=== PATIENT | male | born 1985 | race African-American/Black ===

== ENCOUNTER 2024-06-25 20:31 | Inpatient (IN) | payer MEDICAID, OTHER ==
--- NOTE | 2024-06-26 04:34 | ED ---
Psych HPI - General Chief Complaint: Psychiatric Symptoms Stated Complaint: Petition Time Seen by Provider: 06/26/24 00:30 Source: patient, police, RN notes reviewed Mode of arrival: ambulatory Limitations: no limitations - History of Present Illness Initial Comments: This is a 38-year-old male who presents to the emergency department for psychiatric evaluation. Patient was petitioned by police for suicidal ideations. Patient states that he found out that this girlfriend was cheating on him with his landlord. He went to confront his landlord, who then got scared and told police that he was making suicidal statements. Patient currently denies this and states that he is frustrated with the situation and does not want to be here. - Related Data Allergies Allergy/AdvReac Type Severity Reaction Status Date / Time No Known Allergies Allergy Verified 06/25/24 20:51 Review of Systems ROS Statement: Those systems with pertinent positive or pertinent negative responses have been documented in the HPI. ROS Other: All systems not noted in ROS Statement are negative. Past Medical History Past Medical History: No Reported History History of Any Multi-Drug Resistant Organisms: None Reported Past Surgical History: Orthopedic Surgery Past Psychological History: No Psychological Hx Reported Smoking Status: Never smoker Past Alcohol Use History: None Reported Past Drug Use History: Marijuana General Exam Limitations: no limitations General appearance: alert, in no apparent distress Head exam: Present: atraumatic, normocephalic, normal inspection Respiratory exam: Present: normal lung sounds bilaterally. Absent: respiratory distress, wheezes, rales, rhonchi, stridor Cardiovascular Exam: Present: regular rate, normal rhythm, normal heart sounds. Absent: systolic murmur, diastolic murmur, rubs, gallop, clicks Neurological exam: Present: alert, oriented X3, CN II-XII intact Psychiatric exam: Present: agitated. Absent: homicidal ideation, suicidal ideation Skin exam: Present: warm, dry, intact, normal color. Absent: rash Course Vital Signs 06/25/24 20:49 Temperature 99.0 F Pulse Rate 80 Respiratory 18 Rate Blood Pressure 156/76 O2 Sat by Pulse 99 Oximetry Medical Decision Making - Medical Decision Making This is a 38 year old male who presents to the emergency department for mental health evaluation. Was pt. sent in by a medical professional or institution? @ -No Did you speak to anyone other than the patient for history? @ -No Did you review nursing and triage notes? @ -Yes, and I agree, it is accurate with regards to the patient's symptoms. Were old charts reviewed? @ -No Differential Diagnosis? @ -Differential Mental Health Depression, anxiety, bipolar, psychosis, schizophrenia, borderline personality, situational depression, adjustment disorder, behavioral disorder, brain tumor, malingering, substance abuse, encephalopathy, medication reaction, dementia, hypothyroidism, degenerative neurologic disorder, lupus.... This is not meant to be all-inclusive list EKG interpreted by me (3pts min.)? @ -Not obtained X-rays interpreted by me (1pt min.)? @ -Not obtained CT interpreted by me (1pt min.)? @ -Not obtained U/S interpreted by me (1pt. min.)? @ -Not obtained What testing was considered but not performed? (CT, X-rays, U/S, labs)? Why? @ -None What meds were considered but not given? Why? @ -None Did you discuss the management of the patient with other professionals? @ -No Did you reconcile home meds? @ -No Was smoking cessation discussed for >3mins.? @ -No Was critical care preformed (if so, how long)? @ -No Were there social determinants of health that impacted care today? How? (Homelessness, low income, unemployed, alcoholism, drug addiction, transportation, low edu. Level, literacy, decrease access to med. care, intermediate, rehab)? @ -No Was there de-escalation of care discussed even if they declined? (Discuss DNR or withdrawal of care, Hospice)? @ -No What co-morbidities impacted this encounter? (DM, HTN, Smoking, COPD, CAD, Cancer, CVA, Hep., AIDS, mental health diagnosis, sleep apnea, morbid obesity)? @ -Major depressive disorder, schizoaffective disorder Was patient admitted / discharged? @ -Admitted. BAT was 0.00 and patient was cleared for EPS evaluation. EPS evaluated the patient and advised that he meets criteria for inpatient psychiatric hospitalization. He has a history of schizoaffective disorder and major depressive disorder with psychotic features and has not been taking his medications. He has also been making threats to people and has access to weapons. He will be admitted to [facility] on an involuntary basis due to no ncompliance with treatment as well as making threats towards others and poor impulse control. Clinical CERT filled out by ED attending Dr. Montano. Undiagnosed new problem with uncertain prognosis? @ -None Drug Therapy requiring intensive monitoring for toxicity (Heparin, Nitro, Insulin, Cardizem)? @ -None Were any procedures done? @ -None Diagnosis/symptom? @ -Medication noncompliance, threatening to self and others Acute, or Chronic, or Acute on Chronic? @ -Acute Uncomplicated (without systemic symptoms) or Complicated (systemic symptoms)? @ -Uncomplicated Side effects of treatment? @ -None Exacerbation, Progression, or Severe Exacerbation] @ -Not applicable Poses a threat to life or bodily function? @ -Yes, if patient tries to harm himself this is life threatening. Disposition Clinical Impression: Noncompliance with medication regimen, Threatening to others, Schizoaffective disorder Disposition: TRANSFER TO PSYCH HOSP/UNIT Referrals: None,Stated [Primary Care Provider] - 1-2 days
[2024-06-26 09:19] LABS: Appearance,Urine Clear (Clear); Bilirubin,Urine Negative (Negative); Blood,Urine Negative (Negative); Color,Urine Yellow; Glucose,Urine (UA) Negative (Negative); Ketones,Urine 1+ (Negative); Leukocyte Esterase,Urine Negative (Negative); Mucus,Urine Many /hpf; Nitrite,Urine Negative (Negative); Protein,Urine 1+ (Negative); RBC,Urine 3 /hpf (0-5); Squamous Epithelial Cell,Urine <1 /hpf (0-4); WBC,Urine 1 /hpf (0-5)
[2024-06-26] MEDS ORDERED: haloperidoL 5 MG TAB PO PRN (10:08)
[2024-06-26] MEDS ORDERED: MAG HYDROX/AL HYDROX/SIMETH 355 ML BOTTLE PO PRN (10:08)
[2024-06-26] MEDS ORDERED: IBUPROFEN 600 MG TAB PO PRN (10:08)
[2024-06-26] MEDS ORDERED: LORazepam 1 MG TAB PO PRN ×2 (10:08)
[2024-06-26] MEDS ORDERED: MAGNESIUM HYDROXIDE 2,400 MG/30 ML CUP PO PRN (10:08)
[2024-06-26] MEDS ORDERED: ACETAMINOPHEN TAB 325 MG TAB PO PRN (10:08)
[2024-06-26] MEDS ORDERED: HALOPERIDOL LACTATE 5 MG/ML 1 ML VIAL IM PRN (10:08)
[2024-06-26 12:07] LABS: Amphetamine Screen,Urine Not Detected (NotDetected); Barbiturate Screen,Urine Not Detected (NotDetected); Benzodiazepines Screen,Urine Not Detected (NotDetected); Cocaine Screen,Urine Not Detected (NotDetected); Methadone Screen, Urine Not Detected (NotDetected); Opiate Screen,Urine Not Detected (NotDetected); Oxycodone Screen, Urine Not Detected (NotDetected); Phencyclidine Screen,Urine Not Detected (NotDetected); Tricyclic Antidepressant,Urine Not Detected (NotDetected); Urn Cannabinoid Scrn Detected (NotDetected)
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
[2024-06-26] MEDS: PALIPERIDONE 3 MG TAB.ER.24 PO SCH (21:59)
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
--- NOTE | 2024-06-27 11:28 | P.PN ---
Progress Note - Text Progress Note Date: 06/27/24 Interval History: Patient was seen wandering the hallways and was directable and agreeable to quinn ohara with editorial writer in the office. He states that he is good today. He is taking the medications, and he states he feels "normal". He states he slept very well last night, and his appetite is good. He is attending groups. At this time patient denies any suicidal or homicidal ideations, intent or plan. We spoke briefly about the court process, he is currently waiting to meet with the cash on delivery clerk to likely sign a deferral. Patient denies any auditory, visual hallucinations and denies any paranoia or delusions. Patient denies any side effects from the medications and has been compliant with meds. MENTAL STATUS EXAM: General Appearance: Patient appears to be stated age is alert, directable, and attempts to cooperate. Patient appears to have fair hygiene and grooming. Has dreaded hair, quiñones, and multiple tattoos. Tall and thin. Dressed casually. Behavior: Patient is seated without any agitated behavior. Smiling, good mood. Speech: Patient's speech is fluent and nonpressured. Mood/Affect: Patient reports their mood is "great, affect is congruent and constricted, mildly improving. Suicidality/Homicidality: Patient denies having any homicidal ideation intent or plan. Denies any suicidal ideations intent or plan Perceptions: Patient denies any visual hallucinations [and denies any auditory hallucinations Though content/process: There is no evidence of any delusional thought content and thought process is linear and goal-directed. Memory and concentration: AOX3, grossly intact for the purposes of this session. Judgment and insight: mildly improving IMPRESSIONS: mood disorder, unspecified r/o major depressive disorder vs bipolar disorder vs substance induced disorder cannabis use disorder PLAN: -Patient is admitted under involuntary status to [facility] for stabilization of psychiatric symptoms and safety. Patient has not signed adult voluntary or medication consent , but verbally consented to taking medication. A second certification was completed and along with petition will be filed for court -Medications : Invega 3mg qhs for mood/aggression -Ativan and Haldol PRN for agitation/aggression -NRT - non smoker -SW on board for discharge planning. Encourage patient to participate in groups to work on coping skills. Will await deferral and court date. hopeful for discharge early next week.
[2024-06-27 13:48] LABS: Basophils # (A) 0.1 k/uL (0-0.2); Basophils % (A) 1 %; Eosinophils # (A) 0.1 k/uL (0-0.7); Eosinophils % (A) 2 %; HCT 38.7 % (39.0-53.0); Lymphocytes # (A) 1.8 k/uL (1.0-4.8); Lymphocytes % (A) 28 %; MCH 30.1 pg (25.0-35.0); MCHC 33.5 g/dL (31.0-37.0); MCV 89.8 fL (80.0-100.0); Mean Platelet Volume 8.1; Monocytes # (A) 0.3 k/uL (0-1.0); Monocytes % (A) 4 %; Neutrophils # (A) 4.2 k/uL (1.3-7.7); Neutrophils % (A) 64 %; Platelet Count 271 k/uL (150-450); RBC 4.31 m/uL (4.30-5.90); RDW 14.4 % (11.5-15.5); WBC 6.5 k/uL (3.8-10.6)
[2024-06-27 19:31] LABS: Chol/HDL Ratio 2.78 Ratio; LDL Cholesterol,Calculated 50.3 mg/dL (0.0-131.0); VLDL Calculation 13.74 mg/dL (5.00-40.00)
--- NOTE | 2024-06-28 18:49 | P.PN ---
Progress Note - Text Progress Note Date: 06/28/24 Interval history: Patient was seen seated in the lounge watching a movie and was directable and agreeable to speak with conventional underwriter. And asked how he was doing today he stated he is "just chilling". He did not have any concerns about his mood nor did he have anything further to say about his symptoms when asked. At this time patient denies any suicidal or homicidal ideations intent or plan. Denies any auditory or visual hallucinations. Patient denies any side effects from the medications and has been compliant with meds. Mental status exam: General Appearance: Patient appears to be stated age is alert, directable, and cooperative. Hair is in locs, has a quiñones, several tattoos. Behavior: No agitated behavior. Patient is calm and directable Speech: Patient's speech is fluent and nonpressured. Mood/Affect: Mood is "good", affect is congruent and euthymic, smiling. Suicidality/Homicidality: Patient denies having any suicidal or homicidal ideation intent or plan. Perceptions: Patient denies any auditory or visual hallucinations. Though content/process: There is no evidence of any delusional thought content and thought process is linear and goal-directed. Memory and concentration: AOX3, grossly intact for the purposes of this session Judgment and insight: fair Assessment/Plan: Continue with current diagnoses: Unspecified mood disorder, cannabis use disorder Patient continues to meet criteria for inpatient psychiatric admission for symptom stabilization and safety. Currently awaiting deferral and court date. Patient will be maintained on current psychotropic medication regime: Invega 3 mg PO at bedtime Monitor for medication compliance and for any psychotropic medication side effects. Will continue to monitor ongoing response to treatment. Encouraged participation in milieu.
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
--- NOTE | 2024-06-30 10:49 | P.PN ---
Progress Note - Text Progress Note Date: 06/30/24 Interval history: Patient was seen in the hallway and agreeable to speak with the medical underwriter in the office. He states that he is feeling pretty good today. Bread Distributor spoke with the patient about the deferral process, patient verbalized understanding. Patient is very goal orientated. He is very happy and bright affect. He is endorsing good sleep, and a good appetite. At this time patient denies any suicidal or homicidal ideations, intent, or plan. Denies any auditory or visual hallucinations. Patient denies any side effects from the medications and has been compliant with meds. Mental status exam: General Appearance: Patient appears to be stated age is alert, directable, and cooperative. Hair is in locs, has a quiñones, several tattoos. Behavior: No agitated behavior. Patient is calm and directable Speech: Patient's speech is fluent and nonpressured. Mood/Affect: Mood is "good", affect is congruent and bright. Smiling. Suicidality/Homicidality: Patient denies having any suicidal or homicidal ideation intent or plan. Perceptions: Patient denies any auditory or visual hallucinations. Though content/process: There is no evidence of any delusional thought content and thought process is linear and goal-directed. Memory and concentration: AOX3, grossly intact for the purposes of this session Judgment and insight: fair Assessment/Plan: Continue with current diagnoses: Unspecified mood disorder, cannabis use disorder Patient continues to meet criteria for inpatient psychiatric admission for symptom stabilization and safety. Currently awaiting deferral and court date. Patient will be maintained on current psychotropic medication regime: Invega 3 mg PO at bedtime Monitor for medication compliance and for any psychotropic medication side effects. Will continue to monitor ongoing response to treatment. Court hearing is 07/02, deferral possibly tomorrow. If patient defers, he will be discharged. If an ip attorney does not come for a deferral, he will be discharged after his hearing. Encouraged participation in milieu.
[2024-07-01 07:24] VITALS: BP 118/77; PULSE 67; RESP 16; TEMP 97.7
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
== END 2024-07-01 13:46 | disposition home or self-care (01) | DRG 751 ==
LOC: EC 20:31 → 3MHU 06-26 09:14
PROVIDERS: ADMIT Psychiatry & Neurology Psychiatry; ATTEND Psychiatry & Neurology Psychiatry
DX: F32.3 Major depressive disorder, single episode, severe with psychotic features (principal); F12.10 Cannabis abuse, uncomplicated; Z71.51 Drug abuse counseling and surveillance of drug abuser; Z71.89 Other specified counseling; Z11.52 Encounter for screening for COVID-19; F41.9 Anxiety disorder, unspecified; F25.9 Schizoaffective disorder, unspecified; Z28.21 Immunization not carried out because of patient refusal; R45.851 Suicidal ideations; R45.850 Homicidal ideations; V29.99XS Rider (driver) (passenger) of other motorcycle injured in unspecified traffic accident, sequela; Z55.5 Less than a high school diploma; Z91.148 Patient's other noncompliance with medication regimen for other reason; Z79.899 Other long term (current) drug therapy
CPT/HCPCS: 80061; 80306; 81001; 83036; 84443; 85025; 87635; 87636; 99285

== ENCOUNTER → 2024-08-05 | Outpatient (CLI) | payer OTHER ==
--- NOTE | 2024-08-05 12:59 | XR ---
EXAMINATION TYPE: XR lumbar spine 3V DATE OF EXAM: 08/05/2024 Comparison: None Clinical History: 38-year-old male M54.50 LUMBAR PAIN Findings: 6 mm calcification right mid abdomen is nonspecific. 5 lumbar type vertebral bodies. Vertebral body h eights are preserved. Mild degenerative disc interspace narrowing especially L4-L5. Alignment is main tained. Impression: Mild degenerative disc disease L4-L5. No vertebral compression collapse or malalignment. [facility], , 08/05/2024 12:57 PM
== END | disposition home or self-care (01) ==
LOC: RADXRMAIN 11:06
PROVIDERS: ATTEND Family Medicine
DX: M51.361 Other intervertebral disc degeneration, lumbar region with lower extremity pain only (principal)
CPT/HCPCS: 72100